=== PATIENT | female | born 1955 | race African-American/Black ===

== ENCOUNTER 2017-11-30 08:14 | Day surgery (SDC) | payer MEDICAID ==
[~2017-11-30] VITALS: Ht 160 cm; Wt 95.3 kg
[~2017-11-30 08:14] MED LIST: BENA1TAB21; LACTATED RINGERS 1,000 ML IV SCH; SYNTHROID
[2017-11-30] MEDS ORDERED: PROPOFOL 200MG/20ML VIAL IV ONE ×2 (11:29→11:49)
[2017-11-30] MEDS ORDERED: ONDANSETRON HCL 4MG/2ML VIAL ONE (12:12)
[2017-11-30] MEDS ORDERED: KETOROLAC 30MG/ML VIAL ONE (12:12)
[2017-11-30] MEDS ORDERED: MEPERIDINE HCL/PF 25MG/ML CPJ ONE (12:22)
[2017-11-30] MEDS ORDERED: MEPERIDINE HCL/PF 25MG/ML CPJ IV PRN ×2 (12:30→13:00)
[2017-11-30] MEDS ORDERED: HYDROCODONE/ACETAMINOPHEN 10/325MG TABLET PO PRN (12:30)
[2017-11-30] MEDS ORDERED: METO100T16 PO (12:34)
[2017-11-30] MEDS ORDERED: ONDANSETRON HCL 4MG/2ML VIAL IM ONE (13:00)
[2017-11-30] MEDS ORDERED: LEVO150T8 PO (13:32)
[2017-11-30] MEDS ORDERED: ATOR40TA70 PO (13:32)
[2017-11-30] MEDS ORDERED: AMLO10TA80 PO (13:32)
[2017-11-30] MEDS ORDERED: LOSA1TAB37 PO (13:32)
[2017-11-30] MEDS ORDERED: NAPR500T7 PO (13:32)
[2017-11-30 13:39] VITALS: BP 175/105
== END 2017-11-30 16:00 | disposition home or self-care (01) ==
LOC: OR 08:14
PROVIDERS: ATTEND Orthopaedic Surgery
DX: M25.662 Stiffness of left knee, not elsewhere classified (principal); I10 Essential (primary) hypertension; Z96.652 Presence of left artificial knee joint; Z90.710 Acquired absence of both cervix and uterus; Z79.899 Other long term (current) drug therapy; E66.01 Morbid (severe) obesity due to excess calories; E11.9 Type 2 diabetes mellitus without complications; E78.4 Other hyperlipidemia; E03.8 Other specified hypothyroidism; E78.00 Pure hypercholesterolemia, unspecified; K21.9 Gastro-esophageal reflux disease without esophagitis; Z98.890 Other specified postprocedural states; M19.90 Unspecified osteoarthritis, unspecified site; Z68.41 Body mass index [BMI] 40.0-44.9, adult
CPT/HCPCS: 27570; 97110; 97161; J1885; J2175; J2405; J2704; J7120

== ENCOUNTER 2022-09-08 09:42 | Emergency (ER) | payer BC, MEDICAID ==
[~2022-09-08] VITALS: Ht 160 cm; Wt 96.0 kg
[~2022-09-08 09:42] MED LIST changes: +AMLO10TA80 PO; +ATOR40TA70 PO; -LACTATED RINGERS 1,000 ML IV SCH; +LEVO150T8 PO; +LOSA1TAB37 PO; +METO100T16 PO; +NAPR500T7 PO
[2022-09-08 10:08] VITALS: BP 126/59
[2022-09-08] MEDS ORDERED: TRAM50TA3 MT (13:56)
[2022-09-08] MEDS ORDERED: NAPR-681 PO (13:56)
== END 2022-09-08 14:53 | disposition home or self-care (01) ==
LOC: ER 09:42
DX: S16.1XXA Strain of muscle, fascia and tendon at neck level, initial encounter (principal); M25.512 Pain in left shoulder; M25.552 Pain in left hip; V49.59XA Passenger injured in collision with other motor vehicles in traffic accident, initial encounter; Y93.89 Activity, other specified; Y92.89 Other specified places as the place of occurrence of the external cause; Y99.8 Other external cause status; E78.00 Pure hypercholesterolemia, unspecified; I10 Essential (primary) hypertension; Z79.899 Other long term (current) drug therapy
CPT/HCPCS: 71045; 73030; 73502; 99284